=== PATIENT | male | born 1945 | race Caucasian/White ===

== ENCOUNTER 2018-06-26 14:25 | Inpatient (IN) | payer MEDICARE, OTHER ==
[~2018-06-26] VITALS: Ht 185.4 cm; Wt 80.7 kg
--- NOTE | ~2018-06-26 | EKG ---
[place], [place] ELECTROCARDIOGRAM REPORT NAME: JANET MCMAHAN UNIT #: [id number] ROOM: 405 DOCTOR: ALTAGRACIA DRAFT REPORT BIRTHDATE: [birth year] [facility] Test Date: 2018-06-26 Test Time: 14:39:43 Pat Name: JANET MCMAHAN Department: Room: 405 Gender: M Facility Manager Histology: Jemma Prasad : 1945 Requested By: ESTHER SALINAS Order Number: [id number] Reading MD: Margy Freeman MD Measurements Intervals [place] Rate: 81 P: 89 MI: 138 QRS: 106 QRSD: 102 T: 44 QT: 380 QTc: 441 Interpretive Statements Sinus rhythm Left posterior fascicular block Baseline wander in lead(s) V1,V3 No previous ECG available for comparison Electronically Signed On 06-26-2018 15:39:24 PST by Margy Freeman MD CM:EKGRPT:ELECTROCARDIOGRAM REPORT [id number] ESTHER FRIAS DRAFT REPORT ESTHER SALINAS MD
[~2018-06-26 14:25] MED LIST: BACTRIM DS 8001 TA1 PO; CYMBALTA60 MG PO; MEDROL DOSEPAK4 MG PO; NASONEX0.05 MG/AC NS; PEPCID40 MG PO; PROVENTIL0.09 MG/AC IH; PSEUDOEPHEDRINE; SPIRIVA18 MCG PO; VICODIN ES 7501 TAB PO; VITAMINS & MINE1 TAB PO
[2018-06-26 14:27] VITALS: BP 163/93
[2018-06-26] MEDS ORDERED: ZOCOR20 MG PO (14:40)
[2018-06-26] MEDS ORDERED: SYMB160 INH (14:41)
[2018-06-26 14:52] LABS: BASO # 0.1 10*3/uL (0.0-0.1); BASO % 1.6 % (0.0-1.0); EOS # 0.7 10*3/uL (0.0-0.4); EOS % 10.8 % (1.0-4.0); HEMATOCRIT 43.9 % (42.0-52.0); HEMOGLOBIN 14.7 g/dl (14.0-18.0); LYMPH # 1.5 10*3/uL (1.3-4.4); LYMPH % 24.8 % (27.0-41.0); MEAN CELL VOLUME 88.5 fl (80.0-94.0); MEAN CORPUSCULAR HGB 29.6 pg (27.0-31.0); MEAN CORPUSCULAR HGB CONC 33.5 g/dl (33.0-37.0); MEAN PLATELET VOLUME 11.2 fl (9.6-12.3); MONO # 0.6 10*3/uL (0.1-1.0); MONO % 9.6 % (3.0-9.0); NEUT # 3.3 10*3/uL (2.3-7.9); PLATELET COUNT AUTOMATED 211 10*3/uL (130-400); RED BLOOD COUNT 4.96 10*6/uL (4.50-5.90); RED CELL DISTRI WIDTH 12.6 % (0-14.5); WHITE BLOOD COUNT 6.2 10*3/uL (4.8-10.8)
[2018-06-26 15:03] LABS: ACT PARTIAL THROMBO TIME 26.9 SECONDS (20.8-31.5); INTERNATIONAL NORM RATIO 1.1 (2.0-3.5)
[2018-06-26 15:16] LABS: ALBUMIN 3.7 gm/dl (3.1-4.5); ALKALINE PHOSPHATASE 79 U/L (45-117); BUN 9 mg/dl (7-24); CHLORIDE 105 mmol/L (98-107); CREATININE 1.08 mg/dL (0.70-1.30); POTASSIUM 4.1 mmol/L (3.5-5.1); SGOT/AST 30 IU/L (3-35); SGPT/ALT 30 U/L (12-78); SODIUM 139 mmol/L (136-145); TOTAL PROTEIN 7.6 gm/dL (6.4-8.2)
[2018-06-26 15:18] LABS: TROPONIN I < 0.015 ng/ml (<0.045)
[2018-06-26 15:58] LABS: BILIRUBIN NEGATIVE (NEGATIVE); BLOOD TRACE-INTACT (NEGATIVE); CLARITY CLEAR (CLEAR); COLOR YELLOW (YELLOW); GLUCOSE NEGATIVE (NEGATIVE); KETONE NEGATIVE (NEGATIVE); LEUKO ESTERASE NEGATIVE (NEGATIVE); NITRITE NEGATIVE (NEGATIVE); UROBILINOGEN 0.2 E.U./dl (0.2-1.0)
[2018-06-26 16:15] LABS: RBC 0-2 rbc/hpf (0-2)
[2018-06-26 16:47] VITALS: BP 164/84
[2018-06-26 20:00] VITALS: BP 163/77
[2018-06-27] VITALS: BP 168/81
[2018-06-27 04:00] VITALS: BP 153/67
[2018-06-27 06:31] LABS: BASO % 0.1 % (0.0-1.0); HEMATOCRIT 42.3 % (42.0-52.0); HEMOGLOBIN 13.8 g/dl (14.0-18.0); LYMPH # 0.7 10*3/uL (1.3-4.4); LYMPH % 9.4 % (27.0-41.0); MEAN CELL VOLUME 87.9 fl (80.0-94.0); MEAN CORPUSCULAR HGB 28.7 pg (27.0-31.0); MEAN CORPUSCULAR HGB CONC 32.6 g/dl (33.0-37.0); MEAN PLATELET VOLUME 11.5 fl (9.6-12.3); MONO # 0.6 10*3/uL (0.1-1.0); MONO % 8.1 % (3.0-9.0); NEUT # 6.1 10*3/uL (2.3-7.9); NEUT % 82.1 % (47.0-73.0); PLATELET COUNT AUTOMATED 226 10*3/uL (130-400); RED BLOOD COUNT 4.81 10*6/uL (4.50-5.90); RED CELL DISTRI WIDTH 12.6 % (0-14.5); WHITE BLOOD COUNT 7.4 10*3/uL (4.8-10.8)
[2018-06-27 07:00] LABS: BUN 12 mg/dl (7-24); CHLORIDE 104 mmol/L (98-107); CHOLESTEROL 166 mg/dL (<200); SODIUM 137 mmol/L (136-145); TRIGLYCERIDES 57 mg/dl (<150); VLDL CHOLESTEROL 11 mg/dL (6-40)
[2018-06-27 07:12] LABS: FREE T4 1.26 ng/dl (0.76-1.46); HDL CHOLESTEROL 60 mg/dl (40-60); LDL CHOLESTEROL 95 mg/dL (9-159)
[2018-06-27 07:40] LABS: VITAMIN D, 25-HYDROXY 55.3 ng/mL (30-100)
[2018-06-27 08:00] VITALS: BP 143/78
[2018-06-27 12:00] VITALS: BP 159/83
[2018-06-27 16:00] VITALS: BP 144/73
[2018-06-27 20:00] VITALS: BP 125/75
[2018-06-28] VITALS: BP 132/67
[2018-06-28 08:00] VITALS: BP 150/77
[2018-06-28 12:00] VITALS: BP 134/80
[2018-06-28 16:00] VITALS: BP 153/67
[2018-06-28 20:00] VITALS: BP 125/69
[2018-06-29] VITALS: BP 121/70
[2018-06-29 07:53] LABS: BASO % 0.1 % (0.0-1.0); HEMATOCRIT 39.1 % (42.0-52.0); HEMOGLOBIN 12.9 g/dl (14.0-18.0); LYMPH # 0.8 10*3/uL (1.3-4.4); LYMPH % 5.6 % (27.0-41.0); MEAN CELL VOLUME 88.7 fl (80.0-94.0); MEAN CORPUSCULAR HGB 29.3 pg (27.0-31.0); MEAN PLATELET VOLUME 11.2 fl (9.6-12.3); MONO # 0.7 10*3/uL (0.1-1.0); MONO % 4.9 % (3.0-9.0); NEUT # 12.8 10*3/uL (2.3-7.9); NEUT % 88.8 % (47.0-73.0); PLATELET COUNT AUTOMATED 221 10*3/uL (130-400); RED BLOOD COUNT 4.41 10*6/uL (4.50-5.90); RED CELL DISTRI WIDTH 13.2 % (0-14.5); WHITE BLOOD COUNT 14.5 10*3/uL (4.8-10.8)
[2018-06-29 08:00] VITALS: BP 150/80; BP 160/80
[2018-06-29 08:16] LABS: BUN 16 mg/dl (7-24); CHLORIDE 106 mmol/L (98-107); CREATININE 0.99 mg/dL (0.70-1.30); POTASSIUM 3.9 mmol/L (3.5-5.1); SODIUM 140 mmol/L (136-145)
[2018-06-29] MEDS ORDERED: LISINOPRIL10 M1 PO (10:43)
[2018-06-29] MEDS ORDERED: LEVAQUIN500 M2 PO (10:43)
[2018-06-29] MEDS ORDERED: PREDNISONE10 MG PO (10:43)
== END 2018-06-29 12:18 | disposition home or self-care (01) | DRG 193 ==
LOC: ED 14:25 → 4E 15:18 → EDHOLD 15:18 → 4E 15:37
PROVIDERS: Emergency Medicine; Family Medicine
DX: J18.9 Pneumonia, unspecified organism (principal); J96.01 Acute respiratory failure with hypoxia; J44.1 Chronic obstructive pulmonary disease with (acute) exacerbation; J44.0 Chronic obstructive pulmonary disease with (acute) lower respiratory infection; N43.3 Hydrocele, unspecified; R73.9 Hyperglycemia, unspecified; E78.5 Hyperlipidemia, unspecified; K46.9 Unspecified abdominal hernia without obstruction or gangrene; I10 Essential (primary) hypertension; D64.9 Anemia, unspecified; Z72.89 Other problems related to lifestyle; Z87.891 Personal history of nicotine dependence; Z82.49 Family history of ischemic heart disease and other diseases of the circulatory system; Z82.5 Family history of asthma and other chronic lower respiratory diseases

== ENCOUNTER 2020-05-16 16:52 | Emergency (ER) | payer OTHER ==
[~2020-05-16] VITALS: Ht 185.4 cm; Wt 70.3 kg
[~2020-05-16 16:52] MED LIST changes: +LEVAQUIN500 M2 PO; +LISINOPRIL10 M1 PO; +PREDNISONE10 MG PO; +SYMB160 INH; +ZOCOR20 MG PO
[2020-05-16 17:32] LABS: BASO # 0.1 10*3/uL (0.0-0.1); BASO % 1.2 % (0.0-1.0); EOS # 0.7 10*3/uL (0.0-0.4); EOS % 10.9 % (1.0-4.0); LYMPH # 1.4 10*3/uL (1.3-4.4); LYMPH % 20.1 % (27.0-41.0); MEAN CELL VOLUME 89.2 fl (80.0-94.0); MEAN CORPUSCULAR HGB 29.2 pg (27.0-31.0); MEAN CORPUSCULAR HGB CONC 32.7 g/dl (33.0-37.0); MEAN PLATELET VOLUME 11.2 fl (9.6-12.3); MONO # 0.6 10*3/uL (0.1-1.0); MONO % 8.4 % (3.0-9.0); PLATELET COUNT AUTOMATED 213 10*3/uL (130-400); RED BLOOD COUNT 4.93 10*6/uL (4.50-5.90); RED CELL DISTRI WIDTH 12.7 % (0-14.5); WHITE BLOOD COUNT 6.8 10*3/uL (4.8-10.8)
[2020-05-16 17:44] LABS: ACT PARTIAL THROMBO TIME 29.6 SECONDS (20.0-32.1); INTERNATIONAL NORM RATIO 1.1 (2.0-3.5)
[2020-05-16 17:54] LABS: ALKALINE PHOSPHATASE 99 U/L (45-117); BUN 10 mg/dl (7-24); CHLORIDE 105 mmol/L (98-107); CREATININE 1.02 mg/dL (0.70-1.30); SGOT/AST 25 IU/L (3-35); SGPT/ALT 32 U/L (12-78); SODIUM 137 mmol/L (136-145); TOTAL PROTEIN 7.8 gm/dL (6.4-8.2)
[2020-05-16 17:57] LABS: TROPONIN I < 0.015 ng/ml (<0.045)
[2020-05-16] MEDS ORDERED: PREDNISONE20 M1 PO (18:32)
[2020-05-16] MEDS ORDERED: ZITHROMAX250 MG PO (18:32)
== END 2020-05-16 18:49 | disposition home or self-care (01) ==
LOC: ED 16:52
PROVIDERS: Emergency Medicine
DX: J40 Bronchitis, not specified as acute or chronic (principal); J44.9 Chronic obstructive pulmonary disease, unspecified

== ENCOUNTER 2021-10-07 18:58 | Emergency (ER) | payer OTHER ==
[~2021-10-07] VITALS: Ht 185.4 cm; Wt 70.3 kg
[~2021-10-07 18:58] MED LIST changes: +PREDNISONE20 M1 PO; +ZITHROMAX250 MG PO
[2021-10-07 19:40] LABS: BASO % 0.5 % (0.0-1.0); EOS # 0.3 10*3/uL (0.0-0.4); EOS % 5.1 % (1.0-4.0); LYMPH # 1.3 10*3/uL (1.3-4.4); LYMPH % 22.4 % (27.0-41.0); MEAN CELL VOLUME 87.9 fl (80.0-94.0); MEAN CORPUSCULAR HGB 28.9 pg (27.0-31.0); MEAN CORPUSCULAR HGB CONC 32.9 g/dl (33.0-37.0); MEAN PLATELET VOLUME 11.1 fl (9.6-12.3); MONO # 0.5 10*3/uL (0.1-1.0); MONO % 8.5 % (3.0-9.0); NEUT # 3.6 10*3/uL (2.3-7.9); PLATELET COUNT AUTOMATED 224 10*3/uL (130-400); RED BLOOD COUNT 4.78 10*6/uL (4.50-5.90); RED CELL DISTRI WIDTH 11.9 % (0-14.5); WHITE BLOOD COUNT 5.7 10*3/uL (4.8-10.8)
[2021-10-07 19:55] LABS: ALBUMIN 3.4 gm/dl (3.1-4.5); ALKALINE PHOSPHATASE 97 U/L (45-117); BUN 11 mg/dl (7-24); CHLORIDE 107 mmol/L (98-107); CREATININE 0.88 mg/dL (0.70-1.30); POTASSIUM 3.9 mmol/L (3.5-5.1); SGOT/AST 21 IU/L (3-35); SGPT/ALT 30 U/L (12-78); SODIUM 139 mmol/L (136-145); TOTAL PROTEIN 6.9 gm/dL (6.4-8.2)
== END 2021-10-07 22:47 | disposition home or self-care (01) ==
LOC: ED 18:58
PROVIDERS: Internal Medicine
DX: I49.8 Other specified cardiac arrhythmias (principal); R91.8 Other nonspecific abnormal finding of lung field; R79.82 Elevated C-reactive protein (CRP); Z87.891 Personal history of nicotine dependence

== ENCOUNTER → 2021-10-23 | Outpatient (CLI) | payer OTHER | END | disposition home or self-care (01) | LOC: CARD 10-01 10:30 | PROVIDERS: ATTEND Nurse Practitioner Family | DX: I34.8 Other nonrheumatic mitral valve disorders (principal) ==

== ENCOUNTER 2022-07-02 06:50 | Emergency (ER) | payer OTHER ==
[~2022-07-02] VITALS: Ht 185.4 cm; Wt 69.9 kg
[2022-07-02 07:16] LABS: BASO # 0.1 10*3/uL (0.0-0.1); BASO % 0.7 % (0.0-1.0); EOS # 0.1 10*3/uL (0.0-0.4); HEMATOCRIT 33.7 % (42.0-52.0); LYMPH # 0.4 10*3/uL (1.3-4.4); LYMPH % 3.1 % (27.0-41.0); MEAN CELL VOLUME 86.4 fl (80.0-94.0); MEAN CORPUSCULAR HGB 28.7 pg (27.0-31.0); MEAN CORPUSCULAR HGB CONC 33.2 g/dl (33.0-37.0); MEAN PLATELET VOLUME 10.1 fl (9.6-12.3); MONO # 0.7 10*3/uL (0.1-1.0); MONO % 5.5 % (3.0-9.0); NEUT # 11.9 10*3/uL (2.3-7.9); NEUT % 88.9 % (47.0-73.0); PLATELET COUNT AUTOMATED 229 10*3/uL (130-400); RED CELL DISTRI WIDTH 13.8 % (0-14.5); WHITE BLOOD COUNT 13.3 10*3/uL (4.8-10.8)
[2022-07-02 07:27] LABS: ACT PARTIAL THROMBO TIME 32.5 SECONDS (20.0-32.1); INTERNATIONAL NORM RATIO 1.3 (2.0-3.5)
[2022-07-02 07:35] LABS: ALKALINE PHOSPHATASE 127 U/L (45-117); BUN 15 mg/dl (7-24); CHLORIDE 104 mmol/L (98-107); CPK 129 U/L (39-308); CREATININE 0.82 mg/dL (0.70-1.30); POTASSIUM 3.7 mmol/L (3.5-5.1); SGOT/AST 31 IU/L (3-35); SGPT/ALT 34 U/L (12-78); SODIUM 135 mmol/L (136-145)
[2022-07-02 10:49] LABS: BILIRUBIN Negative (Negative); BLOOD Negative (Negative); CLARITY Clear (Clear); COLOR Yellow (Yellow); GLUCOSE Negative (Negative); KETONE Trace (Negative); LEUKO ESTERASE Negative (Negative); NITRITE Negative (Negative); SPECIFIC GRAVITY 1.015 (1.001-1.030)
[2022-07-02 11:00] LABS: RBC 0-2 rbc/hpf (0-2); WBC 0-2 wbc/hpf (0-5)
[2022-07-02] MEDS ORDERED: OMNICEF300 MG PO (11:33)
[2022-07-02] MEDS ORDERED: ZITHROMAX250 MG PO (11:33)
== END 2022-07-02 11:54 | disposition home or self-care (01) ==
LOC: ED 06:50
PROVIDERS: Family Medicine; Internal Medicine
DX: J18.9 Pneumonia, unspecified organism (principal); R42 Dizziness and giddiness; Z79.899 Other long term (current) drug therapy; Z79.2 Long term (current) use of antibiotics